=== PATIENT | male | born 1935 ===

== ENCOUNTER 2019-11-21 13:18 | Inpatient (IN) ==
[2019-11-21 15:54] LABS: Apearance,Urine CLEAR (Clear); Bilirubin,Urine Negative (Negative); Blood, Urine Small mg/dL (Negative); Glucose,Urine (UA) Negative (Negative); Ketones,Urine Negative (Negative); Mucus,Urine Occasional /LPF (Occasional); Nitrite,Urine Negative (Negative); Protein,Urine Negative; RBC,Urine 5 /HPF (0-4); Squamous Epithelial Cell,Urine Occasional /HPF (0-10); Urine Color Yellow (Yellow); Urine Specific Gravity 1.017 (1.001-1.035); Urine Urobilinogen < 2.0 EU/DL (0.2-1.0)
[2019-11-21] MEDS ORDERED: cefTRIAXone 1,000 MG in SODIUM CHLORIDE 0.9% 100 ML IV STA (16:57)
[2019-11-21 17:11] LABS: Calcium 8.1 MG/DL (8.5-10.1); Osmolality,Calculated 279.4 MOS/KG (273-304)
[2019-11-21] MEDS ORDERED: ACETAMINOPHEN 325 MG TABLET PO PRN (17:32)
[2019-11-21] MEDS ORDERED: GLUCAGON 1 MG VIAL IM PRN (17:32)
[2019-11-21] MEDS ORDERED: ONDANSETRON 4 MG/2 ML VIAL IV PRN (17:32)
[2019-11-21] MEDS ORDERED: DEXTROSE 50% 25 GM/50 ML VIAL IV PRN (17:32)
[2019-11-21 17:34] LABS: Eosinophils % 0.7 % (0.00-10.9); Hematocrit 24.3 VOL% (42.0-52.0); Hemoglobin 7.3 GM/DL (14.0-18.0); Immature Granulocytes % 3.3 %; Immature Granulocytes Absolute 0.05 #; Lymphocytes # 0.8 10*3/uL (1.4-4.0); Lymphocytes % 52.6 % (21.2-54.2); Mean Corpuscular Volume 105.2 FL (87-102); Mean Platelet Volume 13.4 FL (9.6-12.0); Monocytes % 30.3 % (1.7-12.7); NRBC # 0.02 10*3/uL; Neutrophils % 13.1 % (38.7-73.9); Platelet Count 63 T/CUMM (130-400); Red Blood Count 2.31 MC/CUMM (3.8-5.5); Red Cell Distribution Width 15.3 % (9.3-17.3); White Blood Count 1.5 T/CUMM (4-12)
[2019-11-21] MEDS ORDERED: SODIUM CHLORIDE 0.9% 1,000 ML IV PRN (17:47)
[2019-11-21 18:12] LABS: Folate 9.5 NG/ML (5.4-24.0)
[2019-11-21 18:14] LABS: Lymphocytes 59 % (20-55); Myelocytes 3 %; Nucleated Red Blood Cells 3 (0-5); Segmented Neutrophils 15 % (50-85)
[2019-11-21 18:15] LABS: Anisocytosis 3+; Hypochromasia 4+; Microcytosis 2+; Reactive Lymphocytes Slight
[2019-11-21 18:17] LABS: Total Cells Counted 100
[2019-11-21] MEDS: AZITHROMYCIN INJ 500 MG in SODIUM CHLORIDE 0.9% 250 ML IV SCH (19:49)
[2019-11-21] MEDS: SODIUM CHLORIDE 0.9% 1,000 ML IV SCH (19:50)
[2019-11-21] MEDS: NICOTINE 21 MG/24 HR PATCH TRANSDERM SCH (22:19)
[2019-11-21] MEDS: ZALEPLON 5 MG CAPSULE PO PRN (23:33)
[2019-11-21] MEDS ORDERED: PNEUMOCOCCAL VACCINE (13 VALENT) 0.5 ML SYRINGE IM ONE (23:52)
[2019-11-22] MEDS: SODIUM CHLORIDE 0.9% 1,000 ML IV SCH ×3 (07:27→22:17)
[2019-11-22 07:31] LABS: Basophils % 0.7 % (0.0-0.8); Eosinophils % 1.4 % (0.00-10.9); Immature Granulocytes % 4.9 %; Immature Granulocytes Absolute 0.07 #; Lymphocytes # 0.6 10*3/uL (1.4-4.0); Mean Corpuscular HGB Conc 32.1 GM/DL (32-36); Mean Corpuscular Volume 98.6 FL (87-102); Mean Platelet Volume 12.4 FL (9.6-12.0); Monocytes % 38.5 % (1.7-12.7); NRBC # 0.07 10*3/uL; Neutrophils % 12.5 % (38.7-73.9); Red Cell Distribution Width 15.9 % (9.3-17.3); White Blood Count 1.4 T/CUMM (4-12)
[2019-11-22 07:34] LABS: Platelet Count 43 T/CUMM (130-400); Red Blood Count 2.94 MC/CUMM (3.8-5.5)
[2019-11-22 07:35] LABS: Hemoglobin 9.3 GM/DL (14.0-18.0)
[2019-11-22 07:55] LABS: Albumin 2.5 G/DL (3.4-5.0); Bilirubin,Total 1.1 MG/DL (0.2-1.0); Osmolality,Calculated 274.7 MOS/KG (273-304); Risk Ratio 3.1; Thyroid Stimulating Hormone 1.91 uIU/ml (0.358-3.74); Total Protein 6.8 G/DL (6.4-8.3); VLDL CHOLESTEROL 11.6 MG/DL
[2019-11-22 08:10] LABS: Atypical Lymphocytes Few; Eosinophils 2 % (0-10); Hypochromasia 1+; Lymphocytes 60 % (20-55); Microcytosis Slight; Nucleated Red Blood Cells 5 (0-5); Ovalocytes Slight; Platelet Estimate Decreased; Segmented Neutrophils 13 % (50-85); Total Cells Counted 100
[2019-11-22] MEDS: cefTRIAXone 1,000 MG in SYRINGE 1 EACH IV SCH (08:30)
[2019-11-22] MEDS: FERROUS SULFATE 325 MG TABLET PO SCH (08:31)
[2019-11-22] MEDS: NICOTINE 21 MG/24 HR PATCH TRANSDERM SCH (08:31)
[2019-11-22] MEDS: PANTOPRAZOLE 40 MG TABLET PO SCH (08:31)
[2019-11-22] MEDS: DILTIAZEM CD 120 MG CAPSULE PO SCH (08:31)
[2019-11-22] MEDS ORDERED: NICOTINE 21 MG/24 HR PATCH TRANSDERM SCH (09:00)
[2019-11-22] MEDS: AZITHROMYCIN INJ 500 MG in SODIUM CHLORIDE 0.9% 250 ML IV SCH (17:03)
[2019-11-22] MEDS: ZALEPLON 5 MG CAPSULE PO PRN (22:18)
[2019-11-23] MEDS: SODIUM CHLORIDE 0.9% 1,000 ML IV SCH (02:29)
[2019-11-23 05:51] LABS: Basophils % 0.6 % (0.0-0.8); Eosinophils % 1.9 % (0.00-10.9); Hematocrit 28.3 VOL% (42.0-52.0); Immature Granulocytes % 1.2 %; Immature Granulocytes Absolute 0.02 #; Lymphocytes # 0.9 10*3/uL (1.4-4.0); Lymphocytes % 58.4 % (21.2-54.2); Mean Corpuscular HGB Conc 31.8 GM/DL (32-36); Mean Corpuscular Volume 99.6 FL (87-102); Mean Platelet Volume 13.7 FL (9.6-12.0); Monocytes % 26.7 % (1.7-12.7); NRBC # 0.03 10*3/uL; Neutrophils % 11.2 % (38.7-73.9); Red Blood Count 2.84 MC/CUMM (3.8-5.5); Red Cell Distribution Width 15.9 % (9.3-17.3); White Blood Count 1.6 T/CUMM (4-12)
[2019-11-23 05:52] LABS: Platelet Count 42 T/CUMM (130-400)
[2019-11-23 06:17] LABS: Alanine Aminotransferase < 9 U/L (16-61); Albumin 2.4 G/DL (3.4-5.0); Alkaline Phosphatase 56 U/L (45-117); Aspartate Amino Transferase 9 U/L (0-37); Blood Urea Nitrogen 13 MG/DL (7-18); Estimated Glom Filtration Rate 77 ML/MIN; Glucose 88 MG/DL (74-106); Osmolality,Calculated 275.5 MOS/KG (273-304); Total Protein 6.5 G/DL (6.4-8.3)
[2019-11-23 06:24] LABS: Atypical Lymphocytes Few; Eosinophils 3 % (0-10); Hypochromasia 1+; Lymphocytes 68 % (20-55); Nucleated Red Blood Cells 3 (0-5); Platelet Estimate Decreased; Segmented Neutrophils 6 % (50-85); Total Cells Counted 100
[2019-11-23 06:25] LABS: Microcytosis Slight
[2019-11-23] MEDS ORDERED: HEPARIN 5,000 UNIT/1 ML VIAL ONE (09:21)
[2019-11-23] MEDS ORDERED: POTASSIUM CHLORIDE 20 MEQ TABLET PO ONE (11:08)
[2019-11-23] MEDS: DILTIAZEM CD 120 MG CAPSULE PO SCH (11:09)
[2019-11-23] MEDS: FERROUS SULFATE 325 MG TABLET PO SCH (11:10)
[2019-11-23] MEDS: PANTOPRAZOLE 40 MG TABLET PO SCH (11:10)
[2019-11-23] MEDS: cefTRIAXone 1,000 MG in SYRINGE 1 EACH IV SCH (11:11)
[2019-11-23] MEDS: NICOTINE 21 MG/24 HR PATCH TRANSDERM SCH (11:11)
[2019-11-23 12:00] VITALS: BP 164/76
== END 2019-11-23 13:05 | disposition home or self-care (01) | DRG 834 ==
LOC: N.ED 13:18 → SUATTDRO 17:30 → N.EDINP 17:30 → N.TELEN 20:44
PROVIDERS: ADMIT Internal Medicine; ATTEND Internal Medicine